=== PATIENT | male | born 1955 | race Caucasian/White ===

== ENCOUNTER 2021-11-27 20:24 | Inpatient (IN) | payer OTHER ==
[~2021-11-27] VITALS: Ht 182.9 cm; Wt 63.5 kg
[2021-11-27 22:01] LABS: RED BLOOD COUNT 4.57 M/UL (4.20-5.50); WHITE BLOOD COUNT 12.3 K/UL (4.5-11.0)
[2021-11-27 22:25] LABS: BUN/CREATININE RATIO 37 (0-10)
[2021-11-28 02:01] LABS: BUN/CREATININE RATIO 36 (0-10)
[2021-11-28 05:57] LABS: BUN/CREATININE RATIO 37 (0-10)
[2021-11-28] MEDS ORDERED: CLOPIDOGREL75 MG PO (09:48)
[2021-11-28] MEDS ORDERED: PROAIR HFA8.5 GM INH (09:48)
[2021-11-28] MEDS ORDERED: ASPIRIN325 MG PO (09:49)
[2021-11-28] MEDS ORDERED: AMITRIPTYLINE H10 MG PO (09:49)
[2021-11-28] MEDS ORDERED: LANTUS SOL100 UNIT/1 SQ (09:49)
[2021-11-28] MEDS ORDERED: LISINOPRIL10 MG PO (09:50)
[2021-11-28] MEDS ORDERED: NOVOLOG 10100 UNITS/ SQ (09:50)
[2021-11-28] MEDS ORDERED: IBU800 MG PO (09:51)
[2021-11-29 04:24] LABS: HEMOGLOBIN 12.7 gm/dl (14.0-17.5); RED BLOOD COUNT 4.14 M/UL (4.20-5.50); WHITE BLOOD COUNT 14.1 K/UL (4.5-11.0)
[2021-11-29 04:46] LABS: BUN/CREATININE RATIO 28 (0-10)
--- NOTE | 2021-11-30 00:29 | NUR ---
APPROX 0015 REPEATED BLOOD SUGAR 115. WILL CONTINUE TO MONITOR PT.
[2021-11-30 04:46] LABS: HEMOGLOBIN 11.3 gm/dl (14.0-17.5); RED BLOOD COUNT 3.78 M/UL (4.20-5.50)
[2021-11-30 04:53] LABS: WHITE BLOOD COUNT 9.9 K/UL (4.5-11.0)
[2021-11-30 05:38] LABS: BUN/CREATININE RATIO 21 (0-10)
[2021-12-01 03:31] LABS: HEMOGLOBIN 11.9 gm/dl (14.0-17.5); RED BLOOD COUNT 3.9 M/UL (4.20-5.50)
[2021-12-01 04:00] LABS: BUN/CREATININE RATIO 23 (0-10)
[2021-12-02 06:43] LABS: HEMOGLOBIN 11.7 gm/dl (14.0-17.5); RED BLOOD COUNT 3.85 M/UL (4.20-5.50)
[2021-12-02 06:44] LABS: WHITE BLOOD COUNT 11.7 K/UL (4.5-11.0)
[2021-12-02 07:12] LABS: BUN/CREATININE RATIO 19 (0-10)
[2021-12-02] MEDS ORDERED: LEVOFLOXACIN500 MG PO (09:54)
== END 2021-12-02 11:24 | disposition home health service (06) | DRG 872 ==
LOC: ER1 20:24 → MED SURG 4 11-28 08:47 → CDU 11-28 08:47 → 3 EAST 11-28 08:47 → MED SURG 4 11-28 19:27
PROVIDERS: Family Medicine; Internal Medicine; Physician Assistant; ADMIT Internal Medicine
PROC: 0FC98ZZ Extirpation of Matter from Common Bile Duct, Via Natural or Artificial Opening Endoscopic (ICD-10-PCS; principal; 2021-11-26)
PROC: BF101ZZ Fluoroscopy of Bile Ducts using Low Osmolar Contrast (ICD-10-PCS; 2021-11-26)
DX: A41.9 Sepsis, unspecified organism (principal); N10 Acute pyelonephritis; N30.90 Cystitis, unspecified without hematuria; E44.1 Mild protein-calorie malnutrition; Z68.1 Body mass index [BMI] 19.9 or less, adult; Z20.822 Contact with and (suspected) exposure to COVID-19; N20.0 Calculus of kidney; K44.9 Diaphragmatic hernia without obstruction or gangrene; F10.10 Alcohol abuse, uncomplicated; K20.90 Esophagitis, unspecified without bleeding; I10 Essential (primary) hypertension; E11.649 Type 2 diabetes mellitus with hypoglycemia without coma; J44.9 Chronic obstructive pulmonary disease, unspecified; R74.01 Elevation of levels of liver transaminase levels; K70.30 Alcoholic cirrhosis of liver without ascites; E11.51 Type 2 diabetes mellitus with diabetic peripheral angiopathy without gangrene; K80.50 Calculus of bile duct without cholangitis or cholecystitis without obstruction; K29.70 Gastritis, unspecified, without bleeding; Z79.01 Long term (current) use of anticoagulants; Z79.82 Long term (current) use of aspirin; Z79.4 Long term (current) use of insulin; Z95.820 Peripheral vascular angioplasty status with implants and grafts; Z87.891 Personal history of nicotine dependence; Z86.14 Personal history of Methicillin resistant Staphylococcus aureus infection; Z90.49 Acquired absence of other specified parts of digestive tract; Z89.012 Acquired absence of left thumb; Z80.9 Family history of malignant neoplasm, unspecified
CPT/HCPCS: 36415; 71045; 74330; 80048; 80053; 80202; 81001; 82009; 82150; 82803; 82947; 82962; 83605; 83690; 83735; 83880; 85025; 85027; 85610; 87040; 87086; 93005; 99285; C1725; C1769; C2617; C9113; J1100; J2185; J2250; J2405; J2543; J2704; J3010; J3370; J7030; J7070; J7120; Q9967; U0002